=== PATIENT | male | born 1955 | race African-American/Black ===

== ENCOUNTER 2019-11-14 17:20 | Emergency (ER) | payer OTHER ==
[2019-11-14] MEDS ORDERED: MORPHINE SULFATE 10 MG/ML INJ IV ONE (18:00)
[2019-11-14] MEDS ORDERED: KETOROLAC TROMETHAMINE INJ/PF 30 MG/1 ML SDV IV ONE (18:03)
[2019-11-14] MEDS ORDERED: NORMAL SALINE 1000 ML 1,000 ML IV ONE (18:04)
[2019-11-14 19:03] LABS: APPEARANCE,URINE SLIGHTLY-CLOUDY; BILIRUBIN,URINE NEGATIVE (NEGATIVE); COLOR,URINE YELLOW; GLUCOSE, URINE NEGATIVE (NEGATIVE); KETONES,URINE NEGATIVE (NEGATIVE); LEUKOCYTE ESTERASE,URINE LARGE (NEGATIVE); NITRITE,URINE NEGATIVE (NEGATIVE); PROTEIN,URINE NEGATIVE (NEGATIVE); URINE SPECIFIC GRAVITY 1.012; UROBILINOGEN,URINE NEGATIVE mg/dL (<2.0)
[2019-11-14 19:51] LABS: ABSOLUTE LYMPHOCYTES (AUTO) 0.9 10^3/uL (0.5-4.7); ABSOLUTE MONOCYTES (AUTO) 0.8 10^3/uL (0.1-1.4); ABSOLUTE NEUT (AUTO) 5.4 10^3/uL (1.7-8.2); BASOPHILS % (AUTO) 0.3 % (0-2); EOSINOPHILS % (AUTO) 0.2 % (0-6); HEMOGLOBIN 11.8 g/dL (13.5-17.0); LYMPHOCYTES % (AUTO) 13.3 % (13-45); MEAN CORPUSCULAR HEMOGLOBIN 31.5 pg (27.0-33.4); MEAN CORPUSCULAR HGB CONC 34.8 g/dL (32.0-36.0); MEAN CORPUSCULAR VOLUME 90 fl (80-97); MONOCYTES % (AUTO) 10.5 % (3-13); PLATELET COUNT 191 10^3/uL (150-450); RED BLOOD COUNT 3.76 10^6/uL (4.35-5.55); RED CELL DISTRIBUTION WIDTH 13.6 % (11.5-14.0); SEGMENTED NEUTROPHILS % (AUTO) 75.7 % (42-78); TOTAL CELLS COUNTED % (AUTO) 100 %; WHITE BLOOD COUNT 7.1 10^3/uL (4.0-10.5)
[2019-11-14 20:08] LABS: ALBUMIN 3.7 g/dL (3.5-5.0); ALKALINE PHOSPHATASE 65 U/L (38-126); ANION GAP 6 (5-19); ASPARTATE AMINO TRANSFERASE 27 U/L (17-59); BILIRUBIN,TOTAL 0.4 mg/dL (0.2-1.3); BLOOD UREA NITROGEN 10 mg/dL (7-20); CALCIUM 8.4 mg/dL (8.4-10.2); CARBON DIOXIDE 26 mmol/L (22-30); CHLORIDE 102 mmol/L (98-107); GLUCOSE 137 mg/dL (75-110); POTASSIUM 3.4 mmol/L (3.6-5.0); TOTAL PROTEIN 6.8 g/dL (6.3-8.2)
[2019-11-14] MEDS ORDERED: ACETAMINOPHEN 325 MG TABLET PO ONE (20:45)
--- NOTE | 2019-11-14 20:45 | RADIOLOGY REPORT (SQ) ---
EXAM DESCRIPTION: Testicular ultrasound CLINICAL HISTORY: 63 years Male; ? Right testicular torsion/epididymitis right-sided pain. TECHNIQUE: Macias-scale, color, and spectral Doppler images were obtained of the testes and scrotum. COMPARISON: None FINDINGS: Right testicle: The testicle measures 3.5 x 2.8 x 3.1 cm. Echogenicity is within normal limits. There is marked increased vascularity within the testicle. A mildly complex moderate to large hydrocele is seen. The epididymis measures 2.1 x 1.1 x 1.8 cm and also has marked increased vascularity.. Left testicle: The testicle measures 4.0 x 2.2 x 3.2 cm and is morphologically normal with normal blood flow. No hydrocele. The epididymis measures 1.0 x 0.9 x 1.2 cm and is also morphologically normal.. Other: Negative IMPRESSION: Marked increased vascularity of both the right testicle and epididymis consistent with epididymitis and orchitis. In addition there is an associated complex hydrocele.
[2019-11-14] MEDS ORDERED: CEFTRIAXONE 1 GM/D5W RTU 1 GM/50 ML RTUPB IV ONE (21:59)
[2019-11-14] MEDS ORDERED: CEFTRIAXONE INJ 1000 MG VIAL ONE (22:25)
[2019-11-14] MEDS ORDERED: DOXYCYCLINE HYCLATE 100 MG TABLET PO ONE (22:59)
--- NOTE | 2019-11-14 23:30 | ER Document Report ---
ED GI/ - General Chief Complaint: Testicular Pain Stated Complaint: TESTICULAR PAIN Time Seen by Provider: 11/14/19 17:46 [facility] Provider: [facility] [[facility]] - Follow up as needed Mode of Arrival: Ambulatory Information source: Patient Notes: Patient is a 63-year-old male comes emergency room in severe pain. Patient states his pain is a 10 out of 10. Complaining of right testicular pain. Patient states it started approximately 2 days ago were hurt to walk but then became unbearable today. He is visiting the area for some car races that his brother was driving and and got to the point where he could not handle the pain anymore so came to the emergency room. Patient denies any known traumatic events. He did have intercourse approximately 1 week ago with the same person for years. He denies any possibility of STDs on either side. Patient did come in with a temp of 100.1 heart rate of 97 blood pressure 211/89 and a sat of 99. He currently takes only amlodipine for his blood pressure. Denies any other medical problems. - HPI Patient complains to provider of: Dysuria, Testicular pain Onset: Other - 2 days Timing/Duration: Gradual Quality of pain: Sharp, Stabbing, Throbbing Severity at maximum: Severe Severity in ED: Severe Pain Level: 5 Context: denies: Bad food, Lifting, Out of the country travel, Recent trauma Location: Right testicle Sexual history: Active, Unprotected intercourse. denies: New partner, Multiple partners, Rectal penetration, STD exposure Associated symptoms: Dysuria Exacerbated by: Sitting, Movement, Walking Relieved by: Denies Similar symptoms previously: No Recently seen / treated by doctor: No - Related Data Allergies/Adverse Reactions: No Known Allergies Allergy (Verified 11/14/19 17:45) Past Medical History - General Information source: Patient - Social History Smoking Status: Never Smoker Cigarette use (# per day): No Frequency of alcohol use: None Drug Abuse: None Lives with: Family Family History: Reviewed & Not Pertinent Patient has homicidal ideation: No Review of Systems - Review of Systems Constitutional: Fever, Weakness EENT: No symptoms reported Cardiovascular: No symptoms reported Respiratory: No symptoms reported Gastrointestinal: No symptoms reported Genitourinary: See HPI, Burning, Dysuria, Hematuria, Urgency Male Genitourinary: Testicular pain. denies: Penile discharge Musculoskeletal: No symptoms reported Skin: No symptoms reported Hematologic/Lymphatic: No symptoms reported Neurological/Psychological: No symptoms reported Physical Exam - Vital signs Vitals: Temp Pulse Resp BP Pulse Ox 100.0 F 96 18 211/89 H 99 11/14/19 17:27 11/14/19 17:27 11/14/19 17:27 11/14/19 17:27 11/14/19 17:27 Interpretation: Hypertensive, Febrile - Notes Notes: PHYSICAL EXAMINATION: GENERAL: Patient is a well-nourished well-developed 63-year-old male who is in no apparent distress on physical exam tonight. He has however an obvious pain and discomfort. Patient walks by holding his groin area to support his testicles. HEAD: Atraumatic, normocephalic. EYES: Pupils equal round and reactive to light, extraocular movements intact, sclera anicteric, conjunctiva are normal. LUNGS: Breath sounds clear to auscultation bilaterally and equal. No wheezes rales or rhonchi. HEART: Regular rate and rhythm without murmurs ABDOMEN: Examination patient's area of concern is his testicles. In a supine position patient dropped his pants while we did have a army ranger present. Visualization of him in the supine position showed that the right testicle is riding very high and apparently very swollen. The left side looks more normal. Cremaster test showed the right side to be very minimal left side was normal. In a standing position patient's right testicle Halling slightly higher than the left and was very tender to palpate at the testicle. The testicle appeared to be moderately enlarged and exceptionally tender. Presence of a hydrocele was possible. Patient was unable to stand or handle minimal amount of palpation of the right testicle. Musculoskeletal: Normal range of motion, no pitting or edema. No cyanosis. NEUROLOGICAL: Normal speech, normal gait. Normal sensory, motor exams PSYCH: Normal mood, normal affect. SKIN: Warm, Dry, normal turgor, no rashes or lesions noted. Course - Re-evaluation Re-evalutation: 11/14/19 23:28 Patient's ultrasound of his testicles came back showed that the right testicle: The testicle measures 3.5 x 2.8 x 3.1 cm echogenicity is within normal limits. There is marked increased vascularity within the testicles. Mildly complex moderate to large hydrocele is seen. The epididymis measures 2.1 x 1.1 x 1.8 cm and has a marked increased vascularity. The left testicle measures 4.0 x 2.2 x 3.2 cm and is morphologically normal and normal blood flow. No hydrocele. The epididymis measures 1.0 x 0.9 x 1.2 cm and also morphologically normal patient's lab came back unremarkable his urine however did come back with large leukocyte esterase and moderate blood. The impression on the ultrasound shows as stated marked vascularity of both the right testicle and epididymis consistent with epididymitis and orchitis. In addition there is also a complex hydrocele. This time patient has recovered quite well even though he spiked a temp to 103.0 but then it came back down again. I feel safe to send patient home since he lives in [facility] which is approximately 90 miles away. And he has a doctor there he will see. I am giving him a copy of his ultrasound report. - Vital Signs Vital signs: Temp Pulse Resp BP Pulse Ox 100.6 F H 84 14 147/69 H 95 11/15/19 00:10 11/15/19 00:10 11/15/19 00:10 11/15/19 00:10 11/15/19 00:10 - Laboratory Result Diagrams: 11/14/19 19:30 11/14/19 19:30 Laboratory results interpreted by me: 11/14/19 11/14/19 11/14/19 18:24 19:30 19:30 RBC 3.76 L Hgb 11.8 L Hct 34.0 L Sodium 133.5 L Potassium 3.4 L Glucose 137 H Urine Blood MODERATE H Ur Leukocyte Esterase LARGE H Discharge - Discharge Clinical Impression: Epididymitis, Orchitis and epididymitis, Hydrocele in adult Condition: Stable Disposition: HOME, SELF-CARE Additional Instructions: Epididymitis You have epididymitis. This is an inflammation of the organ just behind the testicle, called the epididymis. It can be due to infection in the bladder or prostate. Many cases are simply inflammation and are not caused by germs. Epididymitis often develops after heavy lifting or vigorous exercise. Antibiotics and antiinflammatory medication are often prescribed. Elevation of the scrotum with a jock-strap or tight briefs will help with the pain. Pain medication may be required. Either cold packs or warm sitz baths can help with the pain -- ask your doctor which he recommends for your case. It may take 10 to 14 days until the pain is gone. Avoid heavy lifting during this time. Call the doctor or go to the hospital if you develop fever, increasing pain, or severe swelling, or if you fail to improve as expected. Hydrocele You have been diagnosed as having a hydrocele. The sac that holds the testicles is called the scrotum. A hydrocele is usually a painless collection of fluid in the membrane that covers the testicle(s). This may be present at or develop later on in life. The cause is usually unknown. In infants a hydrocele can be due to a miscommunication of the fluid surrounding the testes. In adults a hydrocele may form due to injury or inflammation of surrounding structures. Most hydroceles require no treatment, and usually resolve on their own. However, sometimes surgical intervention is recommended for recurrent, or for unusually large hydroceles. The surgery to fix a hydrocele is a minor procedure and usually takes about 1 and 1/2 hours. As we discussed this is something that needs further intervention most likely. I am placing you on 10 days of doxycycline which you must finish all the antibiotics. If for any reason that is too much money have them contact us to change it. Also given you a copy of your ultrasound report to you need to take with you to a urologist and is highly important that you follow-up with 1. I have also added on some labs to find out if this is an sexually transmitted disease which I do not believe it is not but just to make sure. If it is you will be contacted by phone. For pain relief 1 of the best things you can do is wear some briefs that hold or support the testicles you can also ice the area down by taking a small Ziploc bag filled with ice and using a thin paper towel to place it between your leg and the scrotal sac this will help alleviate the discomfort. You can also continue taking ibuprofen 800 mg 3 times a day with food. I am also writing you for some Tylenol 3. Take it as directed. It is highly recommended that you follow-up in [place] with your doctor as soon as you get back there. If you should have a concerns or problems she can return here for reexamination and further continuance of care as well. Prescriptions: Acetaminophen with Codeine [Tylenol #3 Tablet] 1 each PO Q4HP PRN #20 tablet PRN Reason: Doxycycline Hyclate 100 mg PO BID #20 tablet.dr Forms: Elevated Blood Pressure Referrals: [facility] [Primary Care Provider] - Follow up as needed
[2019-11-15 00:10] VITALS: BP 147/69
[2019-11-15 01:32] LABS: CHLAM PCR NOT DETECTED (NOT DETECT)
== END 2019-11-15 00:18 | disposition home or self-care (01) ==
LOC: ER 17:20
DX: N45.3 Epididymo-orchitis (principal); N43.3 Hydrocele, unspecified; R31.9 Hematuria, unspecified; N50.811 Right testicular pain; R30.0 Dysuria; R50.9 Fever, unspecified; R53.1 Weakness; I10 Essential (primary) hypertension; Z79.899 Other long term (current) drug therapy
CPT/HCPCS: 99284; 96361; 96375; 96365; 36415; 87040; 83605; 85025; 80053; 81001; 87491; 87591; 76870; 93976; J1885; J7030; J0696